=== PATIENT | female | born 1975 | race Hispanic/Latino ===

== ENCOUNTER 2016-11-08 07:51 | Emergency (ER) | payer BC, MEDICAID ==
[2016-11-08 07:57] VITALS: BP 132/76; PULSE 81; RESP 16; TEMP 98.7; O2SAT 100
[2016-11-08 07:58] VITALS: BMI 38.3
[2016-11-08] MEDS ORDERED: Lidocaine 1% Inj (20ml) IJ ONE (08:34)
[2016-11-08] MEDS ORDERED: Lidocaine 1% Inj (20ml) ONE (08:40)
--- NOTE | 2016-11-08 08:51 | ED PDOC ---
Upper Extremity Pain/Injury <Jerry Mercado E - Last Filed: 11/08/16 11:38> History Per: Patient History/Exam Limitations: no limitations Onset/Duration Of Symptoms: Hrs (x 1) Current Symptoms Are (Timing): Still Present Additional Complaint(s): Rody is a 40 y/o right-hand dominant female who presents to the ED after getting her left middle finger stuck in her garage door one hour ago. She complains of pain and numbness in her finger and surrounding area, but has no other medical complaints. Patient is unsure if her tetanus vaccination is up to date. PMD: Dr. Ananda Jerome <Lorena Dugan Y - Last Filed: 11/13/16 20:24> Time Seen by Provider: 11/08/16 08:06 Chief Complaint (Nursing): Upper Extremity Problem/Injury Past Medical History Vital Signs: Last Vital Signs Temp 98.7 F 11/08/16 07:57 Pulse 81 11/08/16 07:57 Resp 11/08/16 07:57 BP 132/76 11/08/16 07:57 Pulse Ox 100 11/08/16 10:50 <Jerry Mercado E - Last Filed: 11/08/16 11:38> Reviewed: Historical Data, Nursing Documentation, Vital Signs Vital Signs: Last Vital Signs Temp 98.7 F 11/08/16 07:57 Pulse 81 11/08/16 07:57 Resp 11/08/16 07:57 BP 132/76 11/08/16 07:57 Pulse Ox 100 11/08/16 07:57 - Medical History PMH: Asthma - Surgical History Surgical History: Cholecystectomy, - Family History Family History: States: Unknown Family Hx - Social History Current smoker - smoking cessation education provided: No Alcohol: None Drugs: Denies - Immunization History Hx Tetanus Toxoid Vaccination: No Hx Influenza Vaccination: No Hx Pneumococcal Vaccination: No <Lorena Dugan Y - Last Filed: 11/13/16 20:24> - Home Medications Home Medications: Ambulatory Orders Medication Instructions Recorded Nitrofurantoin Macrocrystals 100 mg PO BID #20 cap 08/20/14 [Macrobid] [id number] [] 1 tab PO DAILY 08/20/14 Tramadol Hydrochloride [Tramadol] 50 mg PO Q6 PRN 08/27/14 Zolpidem Tartrate [Zolpidem] 5 mg PO HS PRN 08/27/14 Tramadol HCl/Acetaminophen 1 tab PO Q6 #15 tab 08/28/14 [Ultracet 325 mg-37.5 mg] Cephalexin [Keflex] 500 mg PO BID #14 capsule 11/08/16 - Allergies Allergies/Adverse Reactions: Allergies Allergy/AdvReac Type Severity Reaction Status Date / Time aspirin AdvReac VOMITING Verified 11/08/16 08:24 codeine AdvReac VOMITING Verified 11/08/16 08:24 Review of Systems Musculoskeletal: Positive for: Hand Pain (pain and numbness in left 3rd digit) <Lorena Dugan Y - Last Filed: 11/13/16 20:24> Physical Exam - Physical Exam Extremity: Positive for: Tenderness, Capillary Refill, Other <Jerry Mercado E - Last Filed: 11/08/16 11:38> - Reviewed Nursing Documentation Reviewed: Yes Vital Signs Reviewed: Yes - Physical Exam Appears: Positive for: Non-toxic, No Acute Distress Head Exam: Positive for: ATRAUMATIC, NORMAL INSPECTION, NORMOCEPHALIC Skin: Positive for: Normal Color, Warm, Dry Cardiovascular/Chest: Positive for: Regular Rate, Rhythm Respiratory: Negative for: Respiratory Distress Pulses-Radial (L): 2+ Pulses-Radial (R): 2+ Extremity: Positive for: Tenderness (left 3rd digit), Capillary Refill (< 2 sec) , Swelling (left 3rd digit), Other (Decreased ROM to left fingers due to pain; 1 inch laceration to palmar surface of left 3rd digit with no active bleeding; no signs of cellulitis noted. small subungual hematoma under nail noted) Neurologic/Psych: Positive for: Alert, Oriented <Lorena Dugan Y - Last Filed: 11/13/16 20:24> - ECG O2 Sat by Pulse Oximetry: 100 (RA) Pulse Ox Interpretation: Normal <Lorena Dugan Y - Last Filed: 11/13/16 20:24> Medical Decision Making Medical Decision Making: Time: 8:15 --Urine Test Positive --Provider informed patient of result Time: 8:26 Initial Impression: Left 3rd Digit Injury Initial Plan: --XR Hand; patient verbally consented for XR. pt just notified in the ER that she is . explained that needs xr to rule out foreign body and fracture. --Tylenol --Lidocaine See procedure note for wound repair Time: 9:33 XR WRIST FINDINGS: BONES: Comminuted fracture of the distal 3rd tuft. The remainder the visualized osseous structures appear intact. JOINTS: No dislocation. SOFT TISSUES: Soft tissue swelling. No evidence of radiopaque foreign body. OTHER FINDINGS: None. IMPRESSION: Comminuted fracture of the distal 3rd tuft. Soft tissue swelling. pt aware of fracture. see [facility] Montiel note for suture repair and splint placement pt given tetanus and abx Scribe Attestation: Documented by Sharath Choi, acting as a scribe for Dr. Lorena Dugan. Provider Scribe Attestation: All medical record entries made by the Scribe were at my direction and personally dictated by me. I have reviewed the chart and agree that the record accurately reflects my personal performance of the history, physical exam, medical decision making, and the department course for this patient. I have also personally directed, reviewed, and agree with the discharge instructions and disposition. <Lorena Dugan Y - Last Filed: 11/13/16 20:24> Procedures - Time-Out Type of Procedure: Laceration repair and subungual hematoma evacuation Site of Procedure: L 3rd digit Correct Patient: Yes Correct Procedure: Yes Correct Site Marked: Yes PA/Tech: Jess - Laceration/Wound Repair Laceration repair Wound Length (cm): 1 Wound's Depth, Shape: superficial Wound Explored: clean Irrigated w/ Saline (ccs): 300 Betadine Prep?: Yes Anesthesia: 1% Lidocaine Volume Anesthetic (ccs): 3 Wound Repaired With: Sutures Suture Size/Type: 5:0, proline Number of Sutures: 4 Wound Complexity: Simple Type of Splint Applied: Finger splint - Nail Trepanation Nail Trepanation Location: L 3rd digit Method of Drainage: nail cauterized Sterile Dressing Applied: Yes Finger Splint: Yes Progress: Reports a "release of pressure" <Jerry Mercado E - Last Filed: 11/08/16 11:38> Disposition <Jerry Mercado E - Last Filed: 11/08/16 11:38> - Patient ED Disposition Is Patient to be Admitted: No Counseled Patient/Family Regarding: Studies Performed, Diagnosis, Need For Followup - Disposition Disposition: Routine/Home Disposition Time: 10:00 <Lorena Dugan Y - Last Filed: 11/13/16 20:24> - Clinical Impression Clinical Impression: Laceration, , Subungual hematoma - Disposition Condition: IMPROVED Additional Instructions: follow up in one week for suture removal with your doctor or in the ER keep area dry and clean return to the ED with any worsening or concerning symptoms follow up with customer account administrator for care take vitamins take antibiotics as prescribed Prescriptions: Cephalexin [Keflex] 500 mg PO BID #14 capsule Instructions: (ED), Subungual Hematoma (ED), Laceration (ED) Forms: [employer] (Czech)
--- NOTE | 2016-11-08 09:34 | RAD ---
PROCEDURE: Left Hand Radiographs. HISTORY: third digit COMPARISON: None available. FINDINGS: BONES: Comminuted fracture of the distal 3rd tuft. The remainder the visualized osseous structures appear intact. JOINTS: No dislocation. SOFT TISSUES: Soft tissue swelling. No evidence of radiopaque foreign body. OTHER FINDINGS: None. IMPRESSION: Comminuted fracture of the distal 3rd tuft. Soft tissue swelling.
[2016-11-08] MEDS ORDERED: Povidone Iodine Topical 10% Sol ONE (11:14)
== END 2016-11-08 12:40 | disposition home or self-care (01) ==
LOC: H.ER 07:51
DX: S62.633A Displaced fracture of distal phalanx of left middle finger, initial encounter for closed fracture (principal); W23.1XXA Caught, crushed, jammed, or pinched between stationary objects, initial encounter; Y93.9 Activity, unspecified; Z23 Encounter for immunization; Z33.1 Pregnant state, incidental

== ENCOUNTER 2016-11-24 16:50 | Emergency (ER) | payer BC ==
[2016-11-24 16:51] VITALS: BMI 38.3
[2016-11-24 17:08] VITALS: BP 113/69; PULSE 78; RESP 18; TEMP 98.9; O2SAT 99
--- NOTE | 2016-11-24 17:46 | ED PDOC ---
HPI: Female Pain Time Seen by Provider: 11/24/16 17:11 Chief Complaint (Nursing): Female Genitourinary Chief Complaint (Provider): vaginal bleeding History Per: Patient History/Exam Limitations: no limitations Additional Complaint(s): 40yo F about 7 weeks in ER for c/o vaginal bleeding with associated back pain. no nausea or vomiting no dysurai or hematuira no abdominal pain. a2 Abnormal Vaginal Bleeding: Yes : 4 Para: 1 Miscarriage: 2 (last 2014) Past Medical History Reviewed: Historical Data, Nursing Documentation, Vital Signs Vital Signs: Last Vital Signs Temp 98.9 F 11/24/16 17:05 Pulse 78 11/24/16 17:05 Resp 18 11/24/16 17:05 BP 113/69 11/24/16 17:05 Pulse Ox 99 11/24/16 17:05 - Medical History PMH: Asthma - Surgical History Surgical History: Cholecystectomy, - Family History Family History: States: Unknown Family Hx - Immunization History Hx Tetanus Toxoid Vaccination: No Hx Influenza Vaccination: No Hx Pneumococcal Vaccination: No - Home Medications Home Medications: Ambulatory Orders Medication Instructions Recorded Nitrofurantoin Macrocrystals 100 mg PO BID #20 cap 08/20/14 [Macrobid] [id number] [] 1 tab PO DAILY 08/20/14 Tramadol Hydrochloride [Tramadol] 50 mg PO Q6 PRN 08/27/14 Zolpidem Tartrate [Zolpidem] 5 mg PO HS PRN 08/27/14 Tramadol HCl/Acetaminophen 1 tab PO Q6 #15 tab 08/28/14 [Ultracet 325 mg-37.5 mg] Cephalexin [Keflex] 500 mg PO BID #14 capsule 11/08/16 - Allergies Allergies/Adverse Reactions: Allergies Allergy/AdvReac Type Severity Reaction Status Date / Time aspirin AdvReac VOMITING Verified 11/08/16 08:24 codeine AdvReac VOMITING Verified 11/08/16 08:24 Review of Systems ROS Statement: Except As Marked, All Systems Reviewed And Found Negative Constitutional: Negative for: Fever, Chills Genitourinary Female: Positive for: Vaginal Bleeding Musculoskeletal: Positive for: Back Pain Physical Exam - Reviewed Nursing Documentation Reviewed: Yes Vital Signs Reviewed: Yes - Physical Exam Appears: Positive for: Well, Non-toxic, No Acute Distress Skin: Positive for: Normal Color, Warm, DRY Cardiovascular/Chest: Positive for: Regular Rate, Rhythm Respiratory: Positive for: CNT, Normal Breath Sounds Gastrointestinal/Abdominal: Positive for: Normal Exam, Bowel Sounds, Soft. Negative for: Tenderness Back: Positive for: Normal Inspection. Negative for: L CVA Tenderness, R CVA Tenderness Extremity: Positive for: Normal ROM Neurologic/Psych: Positive for: Alert, Oriented - Laboratory Results Result Diagrams: 11/24/16 17:57 11/24/16 17:57 - ECG O2 Sat by Pulse Oximetry: 99 - Progress ED Course And Treament: impression: abnormal vaginal bleeding during vs miscarriage Orders Category Date Time Status TYPE AND SCREEN Stat BBK 11/24/16 17:33 Ordered BETA-HCG,QUANTITATIVE Stat Chem 11/24/16 17:33 Ordered COMP METABOLIC PANEL Stat Chem 11/24/16 17:33 Ordered CBC (WITH DIFFERENTIAL) Stat ERICH 11/24/16 17:33 Ordered URINALYSIS Stat URINALYSIS 11/24/16 17:33 Ordered OB PREG 1ST TRI & OB TRANSVAG [US] Stat US 11/24/16 17:27 Ordered Re-evaluation Time: 19:27 Condition: Re-examined (stable appearing. ) Medical Decision Making Medical Decision Makin11/24/16 11/24/16 11/24/16 18:00 17:57 17:57 WBC 6.5 RBC 4.25 Hgb 11.1 L Hct 34.7 MCV 81.8 D MCH 26.2 L MCHC 32.0 L RDW 16.2 H Plt Count 191 MPV 9.1 Neut % (Auto) 55.4 Lymph % (Auto) 31.8 [place] % (Auto) 9.6 Eos % (Auto) 2.3 Baso % (Auto) 0.9 Neut # 3.6 Lymph # 2.1 [place] # 0.6 Eos # 0.2 Baso # 0.1 Sodium 143 Potassium 3.9 Chloride 106 Carbon Dioxide 23 Anion Gap 18 BUN 11 Creatinine 0.7 Est GFR ( Amer) > 60 Est GFR (Non-Af Amer) > 60 Random Glucose 86 Calcium 8.8 Total Bilirubin 0.4 AST 18 ALT 26 Alkaline Phosphatase 39 Total Protein 7.6 Albumin 4.2 Globulin 3.4 Albumin/Globulin Ratio 1.2 Beta HCG, Quant 99932.00 Urine Color Yellow Urine Clarity Slighty-cloudy Urine pH 6.0 Ur Specific [place] 1.013 Urine Protein Negative Urine Glucose (UA) Neg Urine Ketones Negative Urine Blood Moderate Urine Nitrate Negative Urine Bilirubin Negative Urine Urobilinogen 0.2-1.0 Ur Leukocyte Esterase Neg Urine RBC (Auto) 3 Urine Microscopic WBC 1 Ur Squamous Epith Cells 1 Urine Bacteria Rare Blood Type Antibody Screen BBK History Checked 11/24/16 17:57 WBC RBC Hgb Hct MCV MCH MCHC RDW Plt Count MPV Neut % (Auto) Lymph % (Auto) [place] % (Auto) Eos % (Auto) Baso % (Auto) Neut # Lymph # [place] # Eos # Baso # Sodium Potassium Chloride Carbon Dioxide Anion Gap BUN Creatinine Est GFR ( Amer) Est GFR (Non-Af Amer) Random Glucose Calcium Total Bilirubin AST ALT Alkaline Phosphatase Total Protein Albumin Globulin Albumin/Globulin Ratio Beta HCG, Quant Urine Color Urine Clarity Urine pH Ur Specific [place] Urine Protein Urine Glucose (UA) Urine Ketones Urine Blood Urine Nitrate Urine Bilirubin Urine Urobilinogen Ur Leukocyte Esterase Urine RBC (Auto) Urine Microscopic WBC Ur Squamous Epith Cells Urine Bacteria Blood Type Pending Antibody Screen Pending BBK History Checked Patient has bt Disposition - Clinical Impression Clinical Impression: Threatened - Patient ED Disposition Is Patient to be Admitted: Transfer of Care - Disposition Disposition Time: 19:58 Condition: STABLE Forms: [employer] (Yakut) Patient Signed Over To: Adamaris Wilson (pending US results)
[2016-11-24 18:04] LABS: BASO # 0.1 K/uL (0.0-0.2); BASO % 0.9 % (0.0-2.0); EOS # 0.2 K/uL (0.0-0.7); EOS % 2.3 % (0.0-4.0); HEMATOCRIT 34.7 % (34.0-47.0); LYMPH # 2.1 K/uL (1.0-4.3); LYMPH % 31.8 % (20.0-40.0); MEAN CELL VOLUME 81.8 fl (81.0-99.0); MEAN CORPUSCULAR HEMOGLOBIN 26.2 pg (27.0-31.0); MEAN PLATELET VOLUME 9.1 fl (7.2-11.7); MONO # 0.6 K/uL (0.0-0.8); MONO % 9.6 % (0.0-10.0); NEUT # 3.6 K/uL (1.8-7.0); NEUT % 55.4 % (50.0-75.0); NRBC % 0.1 % (0.0-0.0); RED CELL DISTRIBUTION WIDTH 16.2 % (11.5-14.5); WHITE BLOOD COUNT 6.5 K/uL (4.8-10.8)
[2016-11-24 18:11] LABS: ALB/GLOB RATIO 1.2 (1.0-2.1); ALKALINE PHOSPHATASE 39 U/L (38-126); ALT/SGPT 26 U/L (9-52); AST/SGOT 18 U/L (14-36); BILIRUBIN,TOTAL 0.4 mg/dl (0.2-1.3); BLOOD UREA NITROGEN 11 mg/dl (7-17); CALCIUM 8.8 mg/dL (8.4-10.2); CARBON DIOXIDE 23 mmol/L (22-30); CHLORIDE 106 mmol/L (98-107); GFR AFRICAN-AMERICAN > 60; GLUCOSE,RANDOM 86 mg/dL (65-105); POTASSIUM 3.9 MMOL/L (3.6-5.0); SODIUM 143 mmol/l (132-148); TOTAL PROTEIN 7.6 G/DL (6.3-8.2)
[2016-11-24 18:36] LABS: RBC URINE 3 /hpf (0-3); URINE BACTERIA RARE (<OCC); URINE BILIRUBIN NEGATIVE (NEGATIVE); URINE BLOOD MODERATE (NEGATIVE); URINE COLOR YELLOW (YELLOW); URINE GLUCOSE (UA) NEG (Normal); URINE KETONE NEGATIVE (NEGATIVE); URINE LEUKOCYTE ESTERASE NEG Leu/uL (Negative); URINE PROTEIN NEGATIVE (NEGATIVE); URINE UROBILINOGEN 0.2-1.0 mg/dL (0.2-1.0); WBC URINE 1 /hpf (0-5)
--- NOTE | 2016-11-24 20:13 | ED PDOC ---
- Laboratory Results Result Diagrams: 11/24/16 17:57 11/24/16 17:57 - ECG O2 Sat by Pulse Oximetry: 99 Pulse Ox Interpretation: Normal - Other Rad OB US X-Ray: Read By Radiologist X-Ray Interpretation: see below Medical Decision Making Medical Decision Making: Case was signed out to functional tester typewriters from [facility] pending US. US: FINDINGS: Gestation: Single intrauterine gestational sac/ with yolk sac is noted. The gestational sac corresponds to gestational age of 5 weeks and 6 days. No pole is identified at this time. Uterus/cervix: See above. Ovaries: Left ovary normal in size. Right ovary is normal in size. 2 x 2 0.3 cm parovarian cyst is noted in the right adnexal region. Vascular flow noted in both ovaries. Free fluid: No evidence of free fluid in the submitted imgaes. IMPRESSION: Single intrauterine gestational sac/ with yolk sac is noted. The gestational sac corresponds to gestational age of 5 weeks and 6 days. No pole is identified at this time.these findings are likely related to early . Close followup with beta-hCG and ultrasound is recommended. The remainder of the findings are as described above. Patient is aware of US results, all questions answered. Patient was instructed to follow up with her OB, Dr. Degroot. Disposition - Clinical Impression Clinical Impression: Threatened - POA Present On Arrival: None - Disposition Referrals: José Antonio Degroot DO [Staff Provider] - Disposition: Routine/Home Disposition Time: 23:41 Condition: STABLE Additional Instructions: Rest as much as possible and drink plenty of fluids. Follow up with your OB in 2-3 days. Instructions: Threatened Miscarriage (ED) Forms: [employer] (Dominican)
--- NOTE | 2016-11-25 08:24 | US ---
PROCEDURE: OB Pelvic Ultrasound HISTORY: 7 weeks preg. vaginal bleeding COMPARISON: None available. FINDINGS: UTERUS: Gestational sac: There is a well-formed intrauterine gestational sac with double decidual ring sign. There is a yolk sac appreciated, however no pole is seen at the present time. Heart rate: 0 bpm. age (Ultrasound estimated): 5 weeks Kait-gestational hemorrhage: None. Date of delivery (Ultrasound estimated) : 07/21/2017 based on this ultrasound exam Uterus measures 9.3 x 6 x 7.7 cm. Normal in size and appearance. CERVIX: Long and closed. No cervical abnormality seen. RIGHT OVARY: Measures 3.8 x 2.4 x 3.1 cm. No solid mass lesion. Normal flow. There is evidence of a 2.0 x 2.3 centimeter hypoechoic cyst within the right ovary probably reflecting corpus luteal cyst. No internal echoes are appreciated. LEFT OVARY: Measures 2.7 x 2 x 2.2 cm. No solid mass. Normal flow. FREE FLUID: None. OTHER FINDINGS: Yolk sac measures 3 millimeters. IMPRESSION: Intrauterine gestational sac with yolk sac but no pole. Gestational sac and yolk sac correspond with a 5 week intrauterine gestation, however confirmation of pole with follow-up ultrasound 5-7 days is suggested. In addition follow-up of the patient's beta HCG laboratory values is suggested. Right ovarian simple cyst more than likely representing corpus luteal cyst. Nurse alison was notified of the findings on 11/25/2016 at 8 a.m.. The nurse understood instructions for follow-up ultrasound.
== END 2016-11-24 23:54 | disposition home or self-care (01) ==
LOC: H.ER 16:50
DX: O20.0 Threatened abortion (principal); Z3A.01 Less than 8 weeks gestation of pregnancy; N83.10 Corpus luteum cyst of ovary, unspecified side; J45.909 Unspecified asthma, uncomplicated

== ENCOUNTER 2016-12-11 08:43 | Emergency (ER) | payer BC ==
[2016-12-11 08:49] VITALS: BMI 38.4
--- NOTE | 2016-12-11 09:32 | ED PDOC ---
HPI: Female Pain Time Seen by Provider: 12/11/16 09:13 Chief Complaint (Nursing): Female Genitourinary History Per: Patient Onset/Duration Of Symptoms: Days (2) Current Symptoms Are (Timing): Still Present Severity: Mild Pain Scale Rating Of: 2 Quality Of Discomfort: Cramping Associated Symptoms: denies: Urinary Symptoms Alleviating Factors: None Additional Complaint(s): Vaginal spotting assoc with lower abd cramping since last night. [id number] LMP 8 weeks ago. Seen herre 2 weeks ago with similar sxs. Abnormal Vaginal Bleeding: Yes Past Medical History Vital Signs: Last Vital Signs Temp 97 F L 12/11/16 08:59 Pulse 86 12/11/16 08:59 Resp 18 12/11/16 08:59 BP 109/52 L 12/11/16 08:59 Pulse Ox 100 12/11/16 08:59 - Medical History PMH: Asthma - Surgical History Surgical History: Cholecystectomy, - Family History Family History: States: Unknown Family Hx - Immunization History Hx Tetanus Toxoid Vaccination: No Hx Influenza Vaccination: No Hx Pneumococcal Vaccination: No - Home Medications Home Medications: Ambulatory Orders Medication Instructions Recorded Nitrofurantoin Macrocrystals 100 mg PO BID #20 cap 08/20/14 [Macrobid] [id number] [] 1 tab PO DAILY 08/20/14 Tramadol Hydrochloride [Tramadol] 50 mg PO Q6 PRN 08/27/14 Zolpidem Tartrate [Zolpidem] 5 mg PO HS PRN 08/27/14 Tramadol HCl/Acetaminophen 1 tab PO Q6 #15 tab 08/28/14 [Ultracet 325 mg-37.5 mg] Cephalexin [Keflex] 500 mg PO BID #14 capsule 11/08/16 - Allergies Allergies/Adverse Reactions: Allergies Allergy/AdvReac Type Severity Reaction Status Date / Time aspirin AdvReac VOMITING Verified 12/11/16 08:59 codeine AdvReac VOMITING Verified 12/11/16 08:59 Review of Systems Constitutional: Negative for: Fever Gastrointestinal: Positive for: Abdominal Pain Genitourinary Female: Positive for: Vaginal Bleeding. Negative for: Dysuria, Frequency Musculoskeletal: Negative for: Back Pain Physical Exam - Physical Exam Appears: Positive for: Non-toxic, No Acute Distress Skin: Positive for: Normal Color, Warm, DRY Gastrointestinal/Abdominal: Positive for: Bowel Sounds, Soft. Negative for: Tenderness Pelvic Exam: Positive for: External Exam Normal, No Masses, Blood (Scant blood) , Other (cervix closed). Negative for: Tender Adnexa, Tender Uterus - Laboratory Results Result Diagrams: 12/11/16 10:00 - ECG O2 Sat by Pulse Oximetry: 100 Disposition - Clinical Impression Clinical Impression: Missed ab - Patient ED Disposition Is Patient to be Admitted: No Counseled Patient/Family Regarding: Studies Performed, Diagnosis, Need For Followup, Rx Given - Disposition Referrals: José Antonio Degroot DO [Staff Provider] - Disposition: Routine/Home Disposition Time: 12:17 Condition: FAIR Instructions: Spontaneous Miscarriage (ED) Forms: [employer] (Tunisian)
[2016-12-11 10:09] LABS: BASO % 0.7 % (0.0-2.0); EOS # 0.1 K/uL (0.0-0.7); EOS % 1.7 % (0.0-4.0); HEMATOCRIT 35.4 % (34.0-47.0); LYMPH # 1.6 K/uL (1.0-4.3); LYMPH % 23.2 % (20.0-40.0); MEAN CELL VOLUME 81.1 fl (81.0-99.0); MEAN CORPUSCULAR HEMOGLOBIN 26.5 pg (27.0-31.0); MEAN CORPUSCULAR HGB CONC 32.7 g/dL (33.0-37.0); MONO # 0.6 K/uL (0.0-0.8); MONO % 8.2 % (0.0-10.0); NEUT # 4.6 K/uL (1.8-7.0); NEUT % 66.2 % (50.0-75.0); NRBC % 0.1 % (0.0-0.0); RED CELL DISTRIBUTION WIDTH 16.5 % (11.5-14.5)
[2016-12-11 12:25] VITALS: BP 127/71; PULSE 82; RESP 15; TEMP 98.1; O2SAT 99
--- NOTE | 2016-12-11 12:37 | US ---
PROCEDURE: OB Pelvic Ultrasound HISTORY: r/o ectopic COMPARISON: None available. FINDINGS: UTERUS: Gestational sac: Single intrauterine gestation. Yolk sac is visualized. pole is not identified with certainty. age (Ultrasound estimated): 6 weeks and 2 days Kait-gestational hemorrhage: None. Date of delivery (Ultrasound estimated) : 08/04/2017 Uterus measures 12.5 x 6.9 x 0.4 cm. Normal in size and appearance. CERVIX: Long and closed. No cervical abnormality seen. RIGHT OVARY: Measures 4.4 x 2.0 x 1.6 cm. No mass lesion. Normal flow. There is a 1.8 x 2.1 x 2.1 cm cyst. LEFT OVARY: Not visualized. FREE FLUID: None. OTHER FINDINGS: None. IMPRESSION: Single intrauterine gestational sac with mean gestational age of 6 weeks and 2 days. The estimated date of delivery by ultrasound is 08/04/2017. Imaging follow-up is advised to confirm viability. There is a discrepancy with the clinical dates by 3 weeks. Clinical correlation and follow-up is advised. No adnexal masses or free fluid in the pelvis.
== END 2016-12-11 12:24 | disposition home or self-care (01) ==
LOC: H.ER 08:43
DX: O02.1 Missed abortion (principal); Z3A.01 Less than 8 weeks gestation of pregnancy